=== PATIENT | female | born 1960 | race Caucasian/White ===

== ENCOUNTER 2020-08-08 14:28 | Emergency (ER) | payer SELFPAY ==
[~2020-08-08] VITALS: Ht 165.1 cm; Wt 56.7 kg
--- NOTE | 2020-08-08 14:45 | NUR ---
[id number] [facility] C/O GENERALIZED BODY PAIN, NO OBVIOUS INJURY WATER SPONGER. RATES PAIN 3/10. IN ROOM AIR AND DENIES SOB. RESPIRATION REGULAR AND UNLABORED. ATTACHED ON A MONITOR. WARM BLANKET PROVIDED FOR COMFORT. WILL CONTINUE TO MONITOR THE PATIENT.
[2020-08-08 16:30] VITALS: BP 125/84
[2020-08-08] MEDS: ACETAMINOPHEN 325 MG TABLET PO ONE (17:00)
--- NOTE | 2020-08-08 17:01 | NUR ---
Patient does not wish to proceed with medical care recommended by Dr. Hendrix. Patient given information related to possible complications, up to and including , which could occur as a result of leaving the hospital at this time. Patient verbalizes understanding of risks involved due to leaving against medical advice. Patient has signed AMA form.
--- NOTE | 2020-08-11 10:06 | NUR ---
Cargo Surveyor note: guest services associate consult request received for homelessness. Patient has already been discharged. No further SS intervention needed.
== END 2020-08-08 17:02 | disposition left against medical advice (07) ==
LOC: ER 14:31
DX: T73.0XXA Starvation, initial encounter (principal); R63.1 Polydipsia; R05 Cough; Z59.0 Homelessness; X58.XXXA Exposure to other specified factors, initial encounter